=== PATIENT | female | born 1980 | race Caucasian/White ===

== ENCOUNTER 2023-11-04 15:29 | Emergency (ER) | payer MEDICAID ==
[~2023-11-04] VITALS: Ht 157.5 cm; Wt 73.0 kg
[2023-11-04 15:46] VITALS: O2SAT 98
[2023-11-04 16:09] LABS: CLARITY URINE CLEAR (CLEAR); COLOR URINE YELLOW (YELLOW); GLUCOSE URINE NEGATIVE (NEGATIVE); KETONES URINE NEGATIVE (NEGATIVE); LEUKOCYTE ESTERASE URINE NEGATIVE (NEGATIVE); NITRITE URINE NEGATIVE (NEGATIVE); OCCULT BLOOD URINE NEGATIVE (NEGATIVE); PROTEIN URINE NEGATIVE (NEGATIVE); SPECIFIC GRAVITY URINE 1.004 (1.005-1.030); UROBILINOGEN URINE 0.2 E.U./dL (0.2-1.0)
[2023-11-04 16:58] LABS: BASOPHILS % 0.4 % (0.0-2.0); HEMATOCRIT. 27.5 % (36.0-48.0); HEMOGLOBIN. 8.4 g/dL (12.0-16.0); LYMPHOCYTES % 17.7 % (20.0-50.0); MEAN CORPUSCULAR HEMOGLOBIN 19.8 pg (28.0-32.0); MEAN CORPUSCULAR HGB CONC 30.5 g/dL (31.0-37.0); MEAN PLATELET VOLUME 8.2 fl (7.4-10.4); MONOCYTES % 11.1 % (2.0-8.0); NEUTROPHILS % 69.8 % (40.0-76.0); PLATELET 396 x1000/uL (130-400); RED BLOOD CELL COUNT 4.23 mill/uL (4.2-5.4); RED CELL DISTRIBUTION WIDTH 20.8 % (11.6-14.6); WHITE BLOOD COUNT 7.7 x1000/uL (4.5-11.0)
[2023-11-04 16:59] LABS: ADD RBC MORPHOLOGY YES; DIFFERENTIAL COMMENT 1
[2023-11-04 17:03] LABS: CHLORIDE 110 mEq/L (98-107); POTASSIUM 3.5 mEq/L (3.5-5.1); SODIUM 136 mEq/L (136-145)
[2023-11-04 17:04] LABS: CALCIUM 8.8 mg/dL (8.7-10.4); CARBON DIOXIDE 20 mEq/L (21-32)
[2023-11-04 17:09] LABS: CREATININE 0.7 mg/dL (0.6-1.0); GLUCOSE 86 mg/dL (70-105); UREA NITROGEN BLOOD 9 mg/dL (9-23)
[2023-11-04 17:25] LABS: ANISOCYTOSIS 2+; HYPOCHROMASIA 2+; MICROCYTOSIS 3+; PLATELET ESTIMATE NORMAL
[2023-11-04 17:40] LABS: HCG SCREEN NEGATIVE
[2023-11-04 17:43] LABS: ALANINE AMINOTRANSFERASE 22 IU/L (10-49); ALBUMIN 3.9 g/dL (3.2-4.8); ASPARTATE AMINOTRANSFERASE 31 IU/L (<34); BILIRUBIN DIRECT 0.1 mg/dL (<=3.0)
[2023-11-04 17:44] LABS: BILIRUBIN TOTAL 0.5 mg/dL (0.1-1.0); PROTEIN TOTAL 6.9 g/dL (6.0-8.3)
[2023-11-04] MEDS: ACETAMINOPHEN 500MG TABLET PO SCH (18:31)
[2023-11-04] MEDS: ACETAMINOPHEN 325MG TABLET PO STA (18:31)
[2023-11-04 19:20] VITALS: TEMP 97.8
[2023-11-04] MEDS ORDERED: DOXY100T2 MT (23:25)
[2023-11-04] MEDS ORDERED: DOCU-150 MT (23:30)
[2023-11-04] MEDS ORDERED: FERR324T4 MT (23:30)
[2023-11-04 23:58] VITALS: BP 101/70; PULSE 81; RESP 18
[2023-11-05] MEDS: CEFTRIAXONE SODIUM 500MG VIAL IM ONE (00:12)
[2023-11-05] MEDS: IOHEXOL-300 100 ML BOTTLE ONE (00:12)
[2023-11-05] MEDS: LIDOCAINE HCL/PF 1% 10 MG/ML 5ML VIAL INFIL ONE (00:12)
== END 2023-11-05 00:13 | disposition home or self-care (01) ==
LOC: ER 15:29
DX: R10.30 Lower abdominal pain, unspecified (principal); R50.9 Fever, unspecified; Z90.710 Acquired absence of both cervix and uterus
CPT/HCPCS: 99285; 74177; 80076; 80048; 81003; 81025; 84703; 83690; 85025; 36415; 96372; Q9967; J0696; J3490

== ENCOUNTER 2024-06-27 18:24 | Emergency (ER) | payer MEDICAID ==
[~2024-06-27] VITALS: Ht 157.5 cm; Wt 68.0 kg
[~2024-06-27 18:24] MED LIST: DOCU-422 MT; DOXY100T2 MT; FERR324T4 MT
[2024-06-27 18:41] VITALS: O2SAT 100
[2024-06-27] MEDS: ACETAMINOPHEN 325MG TABLET PO STA (22:33)
[2024-06-28 00:49] LABS: CLARITY URINE CLEAR (CLEAR); COLOR URINE YELLOW (YELLOW); GLUCOSE URINE NEGATIVE (NEGATIVE); KETONES URINE NEGATIVE (NEGATIVE); LEUKOCYTE ESTERASE URINE NEGATIVE (NEGATIVE); NITRITE URINE NEGATIVE (NEGATIVE); OCCULT BLOOD URINE NEGATIVE (NEGATIVE); PROTEIN URINE NEGATIVE (NEGATIVE); SPECIFIC GRAVITY URINE 1.014 (1.005-1.030); UROBILINOGEN URINE 0.2 E.U./dL (0.2-1.0)
[2024-06-28 00:50] LABS: BASOPHILS % 1.5 % (0.0-2.0); DIFFERENTIAL COMMENT 0; EOSINOPHILS % 3.8 % (0.0-5.0); HEMATOCRIT. 32.8 % (36.0-48.0); HEMOGLOBIN. 10.1 g/dL (12.0-16.0); LYMPHOCYTES % 20.9 % (20.0-50.0); MEAN CORPUSCULAR HEMOGLOBIN 22.6 pg (28.0-32.0); MEAN CORPUSCULAR HGB CONC 30.9 g/dL (31.0-37.0); MEAN PLATELET VOLUME 8.7 fl (7.4-10.4); MONOCYTES % 12.7 % (2.0-8.0); NEUTROPHILS % 61.1 % (40.0-76.0); PLATELET 328 x1000/uL (130-400); RED BLOOD CELL COUNT 4.49 mill/uL (4.2-5.4); RED CELL DISTRIBUTION WIDTH 19.5 % (11.6-14.6); WHITE BLOOD COUNT 3.7 x1000/uL (4.5-11.0)
[2024-06-28 00:54] LABS: CHLORIDE 108 mEq/L (98-107); POTASSIUM 3.7 mEq/L (3.5-5.1); SODIUM 137 mEq/L (136-145)
[2024-06-28 00:55] LABS: CALCIUM 9.3 mg/dL (8.7-10.4); CARBON DIOXIDE 21 mEq/L (21-32)
[2024-06-28 01:00] LABS: CREATININE 0.7 mg/dL (0.6-1.0); GLUCOSE 105 mg/dL (70-105); UREA NITROGEN BLOOD 11 mg/dL (9-23)
[2024-06-28 01:06] LABS: HCG SCREEN NEGATIVE
[2024-06-28] MEDS ORDERED: NAPR-681 MT (02:03)
[2024-06-28 02:39] VITALS: BP 109/68; PULSE 82; RESP 20; TEMP 36.72516; O2SAT 100
== END 2024-06-28 02:45 | disposition home or self-care (01) ==
LOC: ER 18:24
DX: D25.9 Leiomyoma of uterus, unspecified (principal); Z79.1 Long term (current) use of non-steroidal anti-inflammatories (NSAID); Z90.710 Acquired absence of both cervix and uterus
CPT/HCPCS: 36415; 76830; 76856; 80048; 81003; 84703; 85025; 99284